=== PATIENT | female | born 1980 | race Caucasian/White ===

== ENCOUNTER 2024-08-25 15:46 | Emergency (ER) | payer BC ==
[2024-08-25 15:53] VITALS: BP 113/73; PULSE 88; RESP 18; TEMP 98.5; BMI 22.2
[2024-08-25] MEDS ORDERED: ACETAMINOPHEN 500 MG TABLET (FP) ONE (17:29)
[2024-08-25] MEDS: ACETAMINOPHEN 500 MG TABLET (FP) PO ONE (17:36)
[2024-08-25 20:17] LABS: HIV INTERPRETATION NEGATIVE (NEGATIVE)
== END 2024-08-25 18:47 | disposition home or self-care (01) ==
LOC: JERFT 15:46
DX: R51.9 Headache, unspecified (principal); R09.81 Nasal congestion; J01.90 Acute sinusitis, unspecified; R20.0 Anesthesia of skin
CPT/HCPCS: 36415; 70450-TC; 86803; 87389; 99284-25